=== PATIENT | female | born 1975 | race Two or more races ===

== ENCOUNTER 2019-11-24 22:57 | Emergency (ER) | payer BC, OTHER ==
[2019-11-24] MEDS ORDERED: DIPHTH,PERTUSS(ACELL),TET 0.5 ML DISP.SYRIN IM ONE ×2 (23:03→23:04)
[2019-11-24] MEDS ORDERED: SILVER SULFADIAZINE 1% TOP CREAM 50 GM JAR TP ONE (23:04)
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
[2019-11-24 23:25] VITALS: BP 115/88; PULSE 72; TEMP 97.9; BMI 21.4
== END 2019-11-24 23:48 | disposition home or self-care (01) ==
LOC: FER 22:57
PROC: 3E0234Z Introduction of Serum, Toxoid and Vaccine into Muscle, Percutaneous Approach (ICD-10-PCS; principal; 2019-11-24)
DX: T23.132A Burn of first degree of multiple left fingers (nail), not including thumb, initial encounter (principal)
CPT/HCPCS: 90715; 99284-25

== ENCOUNTER 2021-08-06 09:00 | Emergency (ER) | payer OTHER ==
[2021-08-06 09:15] VITALS: BP 122/80; PULSE 83; TEMP 98.6; BMI 19.5
[2021-08-06] MEDS ORDERED: SODIUM CHLORIDE 1,000 ML IV ONE ×2 (09:18→10:48)
[2021-08-06] MEDS ORDERED: ACETAMINOPHEN 1000 MG/100 ML BAG IVPB ONE (09:18)
[2021-08-06] MEDS ORDERED: ACETAMINOPHEN INJECTION 100 ML IVPB ONE (09:20)
[2021-08-06 10:17] LABS: HEMATOCRIT 38.5 % (32.4-45.2); HEMOGLOBIN 13.6 G/dL (10.7-15.3); MCH 30.5 pg (25.7-33.7); MCHC 35.4 g/dl (32.0-36.0); MEAN CELL VOLUME 86.4 fl (80-96); MEAN PLT VOLUME 7.3 fl (7.5-11.1); PLATELET COUNT 257.8 10^3/uL (134-434); RBC 4.46 10^6/uL (3.60-5.2); RDW 14.9 % (11.6-15.6); WHITE BLOOD COUNT 9.8 10^3/uL (4.0-10.8)
[2021-08-06 10:27] LABS: ALBUMIN 3.7 g/dl (3.4-5.0); BILIRUBIN,TOTAL 0.8 mg/dl (0.2-1); CALCIUM 9.1 mg/dl (8.5-10); CREATININE 0.7 mg/dl (0.55-1.3); TOT PROT 6.9 g/dl (6.4-8.2)
[2021-08-06 12:05] LABS: HCG,QUALITATIVE URINE Negative
[2021-08-06 12:22] LABS: EPITHELIAL CELLS FEW /hpf
[2021-08-06 14:06] LABS: PLATELET ESTIMATE ADEQUATE
[2021-08-08 00:07] LABS: SARS-CoV-2 NAA Not Detected (Not Detected)
== END 2021-08-06 12:30 | disposition home or self-care (01) ==
LOC: FER 09:00 → SUPCPDRO 09:00 → FER 12:30
PROC: 3E033GC Introduction of Other Therapeutic Substance into Peripheral Vein, Percutaneous Approach (ICD-10-PCS; principal; 2021-08-06)
DX: R19.7 Diarrhea, unspecified (principal)
CPT/HCPCS: 36415; 80053; 81003; 81015; 84703; 85025; 87804; 99284-25; C9803-CS; U0003; U0005

== ENCOUNTER 2022-09-17 08:08 | Emergency (ER) | payer OTHER ==
[2022-09-17 08:19] VITALS: BP 117/81; PULSE 76; RESP 16; TEMP 98.1; BMI 20.9
== END 2022-09-17 09:37 | disposition home or self-care (01) ==
LOC: FER 08:08
DX: S93.491A Sprain of other ligament of right ankle, initial encounter (principal); M25.571 Pain in right ankle and joints of right foot; R22.41 Localized swelling, mass and lump, right lower limb; X50.1XXA Overexertion from prolonged static or awkward postures, initial encounter; Y93.K1 Activity, walking an animal
CPT/HCPCS: 73610-TC-RT-FY; 73630-TC-RT-FY; 99283-25